=== PATIENT | male | born 1945 | race Caucasian/White ===

== ENCOUNTER 2018-10-21 07:13 | Emergency (ER) | payer OTHER, MEDICARE ==
[2018-10-21] MEDS ORDERED: Meclizine HCl 25 MG TAB ONE (07:46)
== END 2018-10-21 07:54 | disposition home or self-care (01) ==
LOC: SCSER 07:13
DX: H81.10 Benign paroxysmal vertigo, unspecified ear (principal); E03.9 Hypothyroidism, unspecified; E78.5 Hyperlipidemia, unspecified; Z79.899 Other long term (current) drug therapy
CPT/HCPCS: 99284; J8499